=== PATIENT | male | born 1975 | race Caucasian/White ===

== ENCOUNTER 2022-09-16 17:50 | Emergency (ER) | payer OTHER, SELFPAY ==
--- NOTE | ~2022-09-16 | CT_ITS ---
EXAMINATION: CT abdomen pelvis w con DATE: 09/16/2022 21:41 INDICATION: Right lower quadrant abdominal pain TECHNIQUE: Computed tomography (CT) of the abdomen and pelvis was performed with 100 CC Omnipaque 350 intravenous contrast. Automated exposure control and iterative reconstruction technique were employe d. Exam dose: 278.51 mGy-cm total exam DLP. COMPARISON: None. FINDINGS: Minimal bilateral dependent lower lobe atelectasis. Normal heart size. No pericardial or pleural effusion. Small sliding hiatal hernia. 6 millimeter probable cyst at the anterior superior aspect of the left hepatic lobe. The liver is oth erwise unremarkable. The gallbladder is contracted. No bile duct or pancreatic duct dilatation or smith creatic mass lesion or calcification is detected. Normal splenic size. Normal morphology of the adrenal glands. Approximately 1.3 cm probable cysts at the anteromedial aspect of the mid to lower left kidney and to 5 mm left renal cortical cysts. No right renal mass lesion is noted. No urinary tract calculus or hy droureteronephrosis. The urinary bladder and prostate gland are unremarkable. Normal caliber of the abdominal aorta. No intraperitoneal or retroperitoneal or pelvic mass lesion or adenopathy or ascites is detected. There is possible soft tissue mass of the sigmoid colon in the right lower abdomen. There is a promi nent amount of fecal material in the colon. Barium enema or colonoscopy workup is recommended. No evidence of appendicitis. No intraperitoneal free air. No suspicious osteolytic or osteoblastic lesions. IMPRESSION: Possible sigmoid colon mass; colon workup is recommended to exclude malignancy Small sliding hiatal hernia Small hepatic cyst Left renal cysts Dr. Urena telephoned Emergency Physician Dr. Brock with the concern for possible sigmoid colon mass and recommendation for colon work up (barium enema or colonoscopy) on 09/17/2022 at 1139 hours. Reviewed, dictated and finalized at [facility]. Reviewed, dictated and finalized at [facility]. IMPRESSION: Possible sigmoid colon mass; colon workup is recommended to exclud e malignancy Small sliding hiatal hernia Small hepatic cyst Left renal cysts Dr. Urena telephoned Emergency Physician Dr. Brock with the concern for possib le sigmoid colon mass and recommendation for colon work up (barium enema or col onoscopy) on 09/17/2022 at 1139 hours.
[2022-09-16 18:32] VITALS: BP 116/84; PULSE 93; RESP 18; TEMP 36.6; O2SAT 100
[2022-09-16 19:49] LABS: Basophils Absolute Auto 0.1 K/mm3 (0.0-0.1); Basophils Percent Auto 0.7 % (0.2-1.2); Eosinophils Absolute Auto 0.2 K/mm3 (0-0.3); Eosinophils Percent Auto 2.2 % (0-4.4); Hematocrit 44.5 % (42.0-52.0); Hemoglobin 14.7 g/dL (14.0-18.0); Immature Granulocyte Absolute 0.01 K/mm3 (0.00-0.031); Immature Granulocyte Percent A 0.1 % (0-0.5); Lymphocytes Absolute Auto 3.23 K/mm3 (0.9-3.2); Mean Corpuscular Volume 96.9 fl (80-100); Mean Platelet Volume 10.8 fl (7.4-10.4); Monocytes Absolute Auto 1.2 K/mm3 (0.1-0.6); Monocytes Percent Auto 14.2 % (2.6-8.5); Neutrophils Absolute Auto 3.8 K/mm3 (1.3-6.7); Neutrophils Percent Auto 44.8 % (45.5-73.1); Platelet Count Result 188 k/mm3 (150-375); Red Blood Count 4.59 M/mm3 (4.6-6.20); Red Cell Distribution Width 13.6 % (11.5-14.5); White Blood Count 8.5 K/mm3 (4.5-10.0)
[2022-09-16 20:04] LABS: Appearance Urine Turbid (Clear); Bacteria Urine None Seen /hpf; Bilirubin Urine Negative (Negative); Blood Urine Negative (Negative); Color Urine Yellow (Yellow); Glucose Urine UA Negative (Negative); Ketones Urine Negative (Negative); Leukocyte Esterase Ur Negative LEU/UL (Negative); Nitrate Urine Negative (Negative); Non Pathogenic Casts 0-2; Protein Urine Negative (Negative); RBC Urine 0-2 /hpf (0-2); Specific Grav Ur 1.012 (1.001-1.035); Squamous Epithelial Cell Urine None seen /hpf (Few); WBC Urine 0-5 /hpf
[2022-09-16 20:07] LABS: Alanine Aminotransferase 20 U/L (6-50); Albumin Level 4.1 g/dL (3.5-5.1); Alkaline Phosphatase 61 U/L (38-126); Anion Gap 3 mmol/L (8-16); Aspartate Amino Transferase 33 U/L (17-59); Bilirubin,Total 0.2 mg/dL (0.2-1.3); Blood Urea Nitrogen 13 mg/dL (9-20); Calcium 8.9 mg/dL (8.4-10.2); Carbon Dioxide 36 mmol/L (22-30); Chloride 103 mmol/L (98-107); Estimated CRCL calculation 77 ml/min; Estimated Glomerular Filt Rate > 60; Glucose 99 mg/dL (65-110); Lipase 101 U/L (23-300); Sodium 142 mmol/L (137-145)
[2022-09-16 20:08] LABS: Add Urine Microscopic? YES
[2022-09-16] MEDS: DICYCLOMINE HCL INJ 20 MG/2 ML VIAL IM (20:57)
[2022-09-16] MEDS: ONDANSETRON INJ 4 MG/2 ML VIAL IV PUSH (20:57)
[2022-09-16] MEDS: SODIUM CHLORIDE 0.9% IV 1,000 ML 999 ML IV CONT (21:24)
--- NOTE | 2022-09-16 22:13 | ED.GENADULT ---
HPI - General Adult General Chief complaint: Abdominal Pain Stated complaint: stomach pain Time Seen by Provider: 09/16/22 20:32 History of Present Illness HPI narrative: Patient presents abdominal presents emerged department with chief complaint of abdominal pain. The patient reports that around 1 PM today patient started having discomfort in the abdomen patient reports more on the right side of his abdomen reports more of a sharp and aching pain patient denies vomiting denies diarrhea reports that he had normal bowel movements today. Patient reports no prior surgeries on his abdomen Related Data Allergies Allergy/AdvReac Type Severity Reaction Status Date / Time Sulfa (Sulfonamide Allergy Mild Verified 06/10/09 19:32 Antibiotics) Review of Systems Review of Systems: A 10 system review of systems was completed on the patient and is negative except for what is stated in the HPI. Nursing and ancillary documentation was reviewed. Exam Narrative: GENERAL: Well-appearing, well-nourished, and in no acute distress. HEAD: Normocephalic, atraumatic. EYES: PERRLA and EOMI. ENT: Nares clear, no rhinorrhea or epistaxis. Mucous membranes moist. NECK: Supple. CHEST: Clear to auscultation. No respiratory distress. HEART: Regular rate and rhythm. No murmur heard. Normal peripheral pulses. ABDOMEN: Soft, tenderness to palpation in the right lower quadrant and right upper quadrant, nondistended, normal active bowel sounds. EXTREMITIES: Normal range of motion. No edema. SKIN: Warm, dry, no rash. NEURO: No focal deficits. Alert and oriented x3. PSYCH: Normal mood and affect. Course Vital Signs Vital signs: Vital Signs Temperature 36.6 C 09/16/22 18:32 Pulse Rate 93 09/16/22 18:32 Respiratory Rate 18 09/16/22 18:32 Blood Pressure 116/84 09/16/22 18:32 Pulse Oximetry 100 09/16/22 18:32 Oxygen Delivery Room Air 09/16/22 18:32 Temperature 36.6 C 09/16/22 18:32 Pulse Rate 78 09/16/22 23:31 Respiratory Rate 15 09/16/22 23:31 Blood Pressure 118/88 09/16/22 23:31 Pulse Oximetry 98 09/16/22 23:31 Oxygen Delivery Room Air 09/16/22 18:32 Medical Decision Making [facility] [place] Narrative Medical decision making narrative: Differential diagnosis includes appendicitis, diverticulitis, kidney stone, choledocholithiasis. Laboratory studies were obtained and the patient showed a normal CBC electrolytes within normal limits liver enzymes were within normal limits lipase was 101 urinalysis showed no evidence of UTI and no red blood cells in the urine. CT scan of the abdomen pelvis showed no acute abdominal pathology but did show significant constipation Patient be started on MiraLAX and will be discharged home Vital Signs Vital Signs: Vital Signs Temperature 36.6 C 09/16/22 18:32 Pulse Rate 93 09/16/22 18:32 Respiratory Rate 18 09/16/22 18:32 Blood Pressure 116/84 09/16/22 18:32 Pulse Oximetry 100 09/16/22 18:32 Oxygen Delivery Room Air 09/16/22 18:32 Temperature 36.6 C 09/16/22 18:32 Pulse Rate 78 09/16/22 23:31 Respiratory Rate 15 09/16/22 23:31 Blood Pressure 118/88 09/16/22 23:31 Pulse Oximetry 98 09/16/22 23:31 Oxygen Delivery Room Air 09/16/22 18:32 Lab Data 09/16/22 19:43 09/16/22 19:43 Labs: Lab Results 09/16/22 Range/Units 19:43 WBC 8.5 (4.5-10.0) K/mm3 RBC 4.59 L (4.6-6.20) M/mm3 Hgb 14.7 (14.0-18.0) g/dL Hct 44.5 (42.0-52.0) % MCV 96.9 (80-100) fl MCH 32.0 (26-34) pg MCHC 33.0 (32-36) g/dl RDW 13.6 (11.5-14.5) % Plt Count 188 (150-375) k/mm3 MPV 10.8 H (7.4-10.4) fl Immature Gran % (Auto) 0.1 (0-0.5) % Neut % (Auto) 44.8 L (45.5-73.1) % Lymph % (Auto) 38.0 (18.3-44.2) % [place] % (Auto) 14.2 H (2.6-8.5) % Eos % (Auto) 2.2 (0-4.4) % Baso % (Auto) 0.7 (0.2-1.2) % Lymph # (Auto) 3.23 H (0.9-3.2) K/mm3 [place] # (Auto) 1.2 H (0.1-0.6)
[2022-09-16 22:28] VITALS: BP 120/92; PULSE 71; RESP 15; O2SAT 98
[2022-09-16 23:31] VITALS: BP 118/88; PULSE 78; RESP 15; O2SAT 98
[2022-09-17 01:06] VITALS: BP 118/68; PULSE 75; RESP 15; O2SAT 100
== END 2022-09-17 01:07 | disposition home or self-care (01) ==
PROVIDERS: Emergency Medicine; Emergency Provider Emergency Medicine; PCP Internal Medicine Infectious Disease
DX: R10.84 Generalized abdominal pain (principal); K59.00 Constipation, unspecified
CPT/HCPCS: 36415; 74177; 80053; 81001; 83690; 85025; 96361; 96372; 96374; 99284; J0500; J2405; J7030; Q9967